=== PATIENT | male | born 1950 ===

== ENCOUNTER 2020-11-05 16:57 | Inpatient (IN) | payer MEDICARE ==
[~2020-11-05] VITALS: Ht 172.7 cm; Wt 63.2 kg
[~2020-11-05 16:57] MED LIST: ACET325T26 PO; APIX5TAB PO; ATOR20TA37 PO; Albuterol-Ipratropium Mdi INH; BUSP5TAB2 PO; CARV12.52 PO; DIGO125T85 PO; FURO40TA6 PO; HYDR-826 PO; MELA5TAB14 PO; METO25TA35 PO; NITR12SP10 SL; PANT40TA6 PO; POTA20TA6 PO; SENN-211 PO; SUCR1TAB33 PO
--- NOTE | 2020-11-05 17:11 | NUR ---
PT TONY FROM [facility]. PER EMS PT WAS COMPLAINING OF CP/SOB @ 1400. PT WAS FOUND TO HAVE O2 SAT OF 76% ON BASELINE 2L. PT ALSO GIVEN NITRO 0.4 AT 1558, PT THEN WAS STATING HE DIDN'T HAVE CP PER EMS BUT WAS STILL HYPOXIC. PT GIVEN 4 MG ZOFRAN AND 324MG ASPIRIN SNAG GRINDER. PT RESTING IN [facility], MONITORING IN PLACE, NADN AT THIS TIME, WCTM.
[2020-11-05] MEDS ORDERED: SODIUM CHLORIDE FLUSH 10ML SYR IVF ONE (17:30)
[2020-11-05 18:01] LABS: BASOPHILS % (AUTO) 1 % (0-1); EOSINOPHILS % (AUTO) 1 % (1-7); LYMPHOCYTES % (AUTO) 13 % (22-44); MEAN CORPUSCULAR HGB CONC 31.6 g/dL (33.2-36.2); MEAN PLATELET VOLUME 8.1 fL (7.4-10.4); MONOCYTES % (AUTO) 11 % (2-9); NEUTROPHILS % (AUTO) 75 % (42-75); PLATELET COUNT 365 x10^3/uL (130-400); RED BLOOD COUNT 2.93 x10^6/uL (4.38-5.82); RED CELL DISTRIBUTION WIDTH 19.5 % (9.4-14.8)
[2020-11-05 18:02] LABS: MD NO
[2020-11-05 18:11] LABS: ALBUMIN 2.3 g/dL (3.4-5.0); ANION GAP 6 mmol/L (5-15); CALCIUM 8.6 mg/dL (8.5-10.1); CHLORIDE 108 mmol/L (98-107); CREATININE 1.82 mg/dL (0.7-1.3)
--- NOTE | 2020-11-05 18:17 | NUR ---
BREAK RN: PT RESTING IN NAD, DENIES CP OR SOB AT THIS TIME. PROVIDED BLANKET.
[2020-11-05] MEDS ORDERED: NITROGLYCERIN 0.4 MG/SPRAY SL PRN (19:00)
[2020-11-05] MEDS ORDERED: ACETAMINOPHEN 325 MG TABLET PO PRN (19:00)
[2020-11-05] MEDS ORDERED: ASPIRIN 325 MG TABLET EC PO ONE (19:00)
[2020-11-05] MEDS ORDERED: LABETALOL 5MG/ML, 20ML IVPush PRN (19:00)
[2020-11-05] MEDS ORDERED: ONDANSETRON 2MG/ML, 2ML IVPush PRN (19:00)
[2020-11-05] MEDS ORDERED: MELATONIN 5 MG TABLET PO PRN (19:00)
[2020-11-05] MEDS ORDERED: NITROGLYCERIN 0.4 MG BOTTLE (25 TABS) SL PRN (19:00)
[2020-11-05] MEDS ORDERED: HYDROcodone/APAP 5/325 TABLET PO PRN (19:00)
--- NOTE | 2020-11-05 19:01 | NUR ---
report recieved from ana talbert
--- NOTE | 2020-11-05 19:23 | NUR ---
DAUGHTER COLTEN [phone] CALLED AND VOICED CONCERNS WITH RN THAT PT HAS A HX OF TRYING TO GET OUT OF SENIOR CARE AND HE WILL DO SO BY CALLING 911 AND COMING TO THE HOSPITAL AND THEN LEAVING AMA. COLTEN ALSO STATES HE WAS JUST SEEN HERE AND WAS EXAMINED BY A DOCTOR AND DETERMINED TO NOT BE ABLE TO MAKE DECISIONS FOR HIMSELF. COLTEN REQUESTING HOSPITAL STAFF DO NOT LET HIM LEAVE. RN EXPLAINED IF PT IS ABLE TO ANSWER QUESTIONS APPROPRIATELY AND SHOWS HE IS ORIENTED WE CANNOT HOLD HIM AGAINT HIS WILL.
[2020-11-05] MEDS ORDERED: ALBUTEROL/IPRATROPIUM 2.5MG/0.5MG, 3 ML HHN SCH (20:00)
--- NOTE | 2020-11-05 20:05 | NUR ---
REPORT GIVEN TO RITCHIE VALENTINO
[2020-11-05 20:12] LABS: ABSOLUTE RETICS # 0.102 x10^6/uL (0.5-1.5); RED BLOOD COUNT 2.92 x10^6/uL (4.38-5.82); RETICULOCYTE COUNT % 3.47 % (0.5-1.5)
[2020-11-05 20:38] VITALS: BP 122/57
[2020-11-05] MEDS ORDERED: METOPROLOL TARTRATE 25 MG TAB PO SCH (21:00)
[2020-11-05] MEDS ORDERED: ATORVASTATIN 20 MG TABLET PO SCH (21:00)
[2020-11-05] MEDS ORDERED: HEPARIN 5,000 UNITS/ML, 1ML IV PRN (21:00)
[2020-11-05] MEDS ORDERED: HEPARIN 5,000 UNITS/ML, 1ML IV ONE (21:00)
[2020-11-05] MEDS ORDERED: HEPARIN 25,000 UNITS/250ML PMX 250 ML IV PRN (21:00)
[2020-11-05] MEDS: SUCRALFATE 1 GM TABLET PO SCH (22:12)
[2020-11-05] MEDS: FUROSEMIDE 40 MG/4 ML IV SCH (22:12)
[2020-11-05 23:35] VITALS: BP 69/44
[2020-11-05 23:45] VITALS: BP 92/51
[2020-11-05 23:55] VITALS: BP 89/51
[2020-11-06] VITALS (13 sets, daily range): BP systolic 87–136; BP diastolic 41–83
[2020-11-06] MEDS ORDERED: SODIUM CHLORIDE 0.9%, 500ML IVBOLUS ONE
[2020-11-06 04:47] LABS: BASOPHILS % (AUTO) 1 % (0-1); EOSINOPHILS % (AUTO) 1 % (1-7); LYMPHOCYTES % (AUTO) 16 % (22-44); MEAN CORPUSCULAR HGB CONC 31.2 g/dL (33.2-36.2); MEAN PLATELET VOLUME 8.4 fL (7.4-10.4); MONOCYTES % (AUTO) 10 % (2-9); NEUTROPHILS % (AUTO) 73 % (42-75); PLATELET COUNT 378 x10^3/uL (130-400); RED BLOOD COUNT 2.83 x10^6/uL (4.38-5.82); RED CELL DISTRIBUTION WIDTH 19.7 % (9.4-14.8)
[2020-11-06 04:50] LABS: MD NO
[2020-11-06 04:54] LABS: ALBUMIN 2.2 g/dL (3.4-5.0); ANION GAP 10 mmol/L (5-15); CHLORIDE 109 mmol/L (98-107)
[2020-11-06 05:02] LABS: ALANINE AMINOTRANSFERASE 32 U/L (12-78); ALKALINE PHOSPHATASE 79 U/L (45-117); BILIRUBIN,TOTAL 2.4 mg/dL (0.2-1.0); CALCIUM 8.8 mg/dL (8.5-10.1); CHOL/HDL RATIO 3.5; CHOLESTEROL, TOTAL 81 mg/dL (140-239); CREATININE 2.08 mg/dL (0.7-1.3); HDL CHOL % 28 % (26-37); HDL CHOLESTEROL (DIRECT) 23 mg/dL (40-60); LDL CHOLESTEROL,CALCULATED 39 mg/dL (54-169); LDL/HDL RATIO 1.7 (0.5-3.0); TOTAL PROTEIN 6.2 g/dL (6.4-8.2); TRIGLYCERIDES 96 mg/dL (50-200); VLDL CHOLESTEROL 19 mg/dL (0-25)
[2020-11-06] MEDS: morphine SULFATE 10 MG/ML, 1ML IVPush PRN ×2 (05:40→10:48)
[2020-11-06] MEDS ORDERED: ASPIRIN 325 MG TABLET EC PO SCH (06:00)
[2020-11-06] MEDS ORDERED: INSULIN SINGLE DOSE, ER IVPush ONE (06:30)
[2020-11-06] MEDS ORDERED: SODIUM POLY SULFONATE UDC 15 GM/60 ML PO ONE (06:30)
[2020-11-06] MEDS ORDERED: DEXTROSE 50%, 50ML SYRINGE IVPush ONE (06:30)
[2020-11-06] MEDS ORDERED: CALCIUM GLUCONATE 4.6 MEQ/10 ML IVPush ONE (06:30)
[2020-11-06] MEDS ORDERED: CALCIUM GLUCONATE 4.6 MEQ in SODIUM CHLORIDE 0.9% 100 ML IV ONE (07:00)
[2020-11-06] MEDS: SUCRALFATE 1 GM TABLET PO SCH (07:00)
[2020-11-06] MEDS ORDERED: PANTOPRAZOLE 40MG TABLET PO SCH (07:30)
[2020-11-06] MEDS ORDERED: INSULIN REGULAR 100 UNITS/ML, 3ML VIAL IV ONE (08:30)
[2020-11-06] MEDS ORDERED: SENNA/DOCUSATE TABLET PO SCH (09:00)
[2020-11-06] MEDS ORDERED: POTASSIUM CHLORIDE 20 MEQ TAB.ER.PRT PO SCH (09:00)
[2020-11-06] MEDS ORDERED: DIGOXIN 0.125 MG TABLET PO SCH (09:00)
[2020-11-06] MEDS: FUROSEMIDE 40 MG/4 ML IV SCH (09:06)
[2020-11-06] MEDS ORDERED: LORazepam 2 MG/ML, 1ML ONE (10:44)
[2020-11-06] MEDS ORDERED: CODE BLUE RESPONSE XX ONE (11:00)
[2020-11-06] MEDS ORDERED: LORazepam 2 MG/ML, 1ML IVPush PRN (11:00)
[2020-11-06] MEDS ORDERED: morphine SULFATE 10 MG/ML, 1ML IVPush ONE (11:00)
[2020-11-06] MEDS ORDERED: EPINEPHRINE SYRINGE 0.1 MG/ML, 10ML ONE ×2 (11:00→23:16)
[2020-11-06] MEDS ORDERED: MORPHINE SULFATE 4 MG/ML, 1ML IVPush PRN (11:00)
[2020-11-06] MEDS ORDERED: AMIODARONE 50 MG/ML, 3ML ONE (11:00)
[2020-11-06] MEDS ORDERED: SODIUM BICARB 8.4%, 50ML SYRINGE ONE ×2 (11:00→23:16)
[2020-11-06] MEDS ORDERED: LORazepam 2 MG/ML, 1ML IVPush ONE (11:00)
== END 2020-11-06 10:54 | disposition expired ==
LOC: ED 18:12 → EDIP 18:58 → 5SO 20:22
PROVIDERS: ADMIT Family Medicine; ATTEND Internal Medicine
PROC: 5A12012 Performance of Cardiac Output, Single, Manual (ICD-10-PCS; principal; 2020-11-06)
DX: I21.4 Non-ST elevation (NSTEMI) myocardial infarction (principal); I50.33 Acute on chronic diastolic (congestive) heart failure; J96.21 Acute and chronic respiratory failure with hypoxia; J18.9 Pneumonia, unspecified organism; E87.2 Acidosis; I13.0 Hypertensive heart and chronic kidney disease with heart failure and stage 1 through stage 4 chronic kidney disease, or unspecified chronic kidney disease; J44.0 Chronic obstructive pulmonary disease with (acute) lower respiratory infection; J98.11 Atelectasis; D64.9 Anemia, unspecified; E78.5 Hyperlipidemia, unspecified; I35.0 Nonrheumatic aortic (valve) stenosis; I48.91 Unspecified atrial fibrillation; N18.30 Chronic kidney disease, stage 3 unspecified; T46.0X5A Adverse effect of cardiac-stimulant glycosides and drugs of similar action, initial encounter; Z51.5 Encounter for palliative care; Z82.49 Family history of ischemic heart disease and other diseases of the circulatory system; Z82.5 Family history of asthma and other chronic lower respiratory diseases; Z86.73 Personal history of transient ischemic attack (TIA), and cerebral infarction without residual deficits; Z87.891 Personal history of nicotine dependence; Z99.81 Dependence on supplemental oxygen; Z88.8 Allergy status to other drugs, medicaments and biological substances
CPT/HCPCS: 36415; 36600; 71045; 80048; 80053; 80061; 80162; 82040; 82728; 82803; 83540; 83550; 83735; 83880; 84100; 84443; 84484; 85025; 85045; 85520; 92950; 93005; 96374; 99285; G0378; J0610; J1815; J1940; J0282; J2060; J2270; J7040; Q0177